=== PATIENT | female | born 1980 | race Caucasian/White ===

== ENCOUNTER 2017-07-12 02:55 | Outpatient (CLI) | payer OTHER ==
[~2017-07-12] VITALS: Ht 162.6 cm; Wt 66.4 kg
[2017-07-12] MEDS ORDERED: RANI150T5 PO (03:37)
[2017-07-12] MEDS ORDERED: BEN50 PO (03:40)
[2017-07-12 03:44] VITALS: Ht 162.6 cm; Wt 66.4 kg
[2017-07-12 03:45] VITALS: BP 109/66; PULSE 99; RESP 19
--- NOTE | 2017-07-12 04:29 | RADRPT ---
PROCEDURE: US OB biophysical profile. CLINICAL INDICATION: decreased movements TECHNIQUE: Multiple sonographic images of the pelvis were obtained. The images were reviewed on a PACS workstation. COMPARISON: No pertinent prior examinations were submitted for comparison. FINDINGS: There is a single viable intrauterine gestation. Cardiac activity is present with 146 beats per min [place]. There is a vertex presentation. The placenta is anterior. There is a normal amount of amniotic fluid with an CALE = 14.6 cm. Biophysical profile: movement 2/2 tone 2/2. breathing 2/2 CALE 2/2 Total 06/25 IMPRESSION: Normal biophysical profile. RPTAT: HIKT . .Dioni Matthews MD, Date Time Electronically viewed and signed by .Dioni Matthews MD, on 07/12/2017 04:28 .T/
--- NOTE | 2017-07-12 05:06 | PN ---
Triage Information Date/Time July 12, 2017. Reason for visit: DFM Weeks of Gestation 35w 6d /Para 1/0 Diabetes: none Hypertention: none Additional information No leaking or bleeding or UC's. PMHx: Has had itching and was in the office 07/10 and bile acids were drawn and are pending. PSHx: none. NKDA. Objective Vital Signs Date Time Temp Pulse Resp B/P Pulse Ox O2 Delivery O2 Flow Rate FiO2 07/12/17 03:45 98.1 99 19 109/66 Room Air Heart Rate: 130's Heart Rate Comments with accels to160 bpm. No decels. Contractions: None Exam Deferred. Results/Medications Imaging Results BPP 06/25. CALE 14.6 cm. VTX. Disposition: Discharge Assessment/Plan A: IUP at 35w 6d. Decreased movement. P: After p.o. hydration the pt was feeling the baby moving again and was ready for d/c. kick counts reviewed. MARQUITA CHANCE MD Jul 12, 2017 05:06
--- NOTE | 2017-07-12 05:09 | TRIAGE ---
OB Triage Datetime Report Generated by CPN: 07/12/2017 05:09 Datetime: 07/12/2017 04:39 Labor Evaluation Frequency: Irregular Monitor Mode: External Quality: Mild Resting Tone [place]: Relaxed Heart Rate FHR Baseline Rate: 135 Monitor Mode: External US Variability: Moderate 6-25 bpm Accelerations: 15X15 Decelerations: None Category: Category I Datetime: 07/12/2017 04:38 Pain Assessment Pain Scale: 0 Pain Presence: None/Denies Pain Type: N/A Datetime: 07/12/2017 04:00 Labor Evaluation Frequency: x3 Monitor Mode: External Duration (sec)2399: 60-90 Quality: Mild Pattern: Normal: <= 5 Contractions in 10 Minutes Resting Tone [place]: Relaxed Heart Rate FHR Baseline Rate: 135 Monitor Mode: External US Variability: Moderate 6-25 bpm Accelerations: 15X15 Decelerations: None Category: Category I Datetime: 07/12/2017 03:51 Pain Assessment Pain Scale: 0 Pain Presence: None/Denies Pain Type: N/A Datetime: 07/12/2017 03:43 Vaginal Exam Membrane Status: Intact Datetime: 07/12/2017 03:15 Time of Arrival: 07/12/2017 02:47 EGA: 35.6 Arrived By: Wheelchair Arrived From: Home Chief Complaint: DFM- last felt the baby move at midnight. Movement: Decreased Contractions: Denies/Absent Rupture of Membranes: Denies Vaginal Bleeding: None Vaginal Discharge: Denies Recent Sexual Intercouse: Denies Abdominal Trauma: Not Applicable Patient Complaints: Other Time Provider Notified: 07/12/2017 04:03 Provider Notified: Dr. Frank Initial Plan: CEFM Datetime: 07/12/2017 03:06 Stage of : OB Triage Assessment Type: Triage Maternal Assessment Level of Consciousness: Fully Conscious DTR's/Clonus: DTRs 2+; No Clonus Headache: Denies Blurred Vision: No Respiratory Effort: Unlabored; Regular Rhythm; Equal Expansion Breath Sounds, Left: Clear and Equal Breath Sounds, Right: Clear and Equal Nausea/Vomiting: Denies RUQ Epigastric Pain: Denies Lower Extremities Edema: None Degree: None Upper Extremities Edema: None Degree: None Facial Edema: None Temperature Route: Oral Fall Risk Assessment History of Falling: (0) No Secondary Diagnosis: (0) No Ambulatory Aid: (0) Bedrest/Nurse Assist IV Therapy: (0) No Gait: (0) Normal/Bedrest/Immobile Mental Status: (0) Oriented to Own Ability Fall Score: 0 Fall Risk Score Definition: No Risk: No action required Pain Assessment Pain Scale: 0 Pain Presence: None/Denies Pain Type: N/A Datetime: 07/12/2017 03:02 Monitor Mode: Palpation (Annotations: Applied) Resting Tone [place]: Relaxed Monitor Mode: External US (Annotations: Applied)
== END 2017-07-12 05:05 | disposition home or self-care (01) ==
LOC: L-D 02:55 → OBT 02:55
PROVIDERS: ATTEND Obstetrics & Gynecology
DX: O36.8130 Decreased fetal movements, third trimester, not applicable or unspecified (principal); Z3A.35 35 weeks gestation of pregnancy
CPT/HCPCS: 76818; Z7500; G0463

== ENCOUNTER 2017-07-13 11:29 | Outpatient (CLI) | payer OTHER ==
[~2017-07-13] VITALS: Ht 157.5 cm; Wt 65.7 kg
[~2017-07-13 11:29] MED LIST: BEN50 PO; RANI150T5 PO
[2017-07-13 12:03] VITALS: Ht 157.5 cm; Wt 65.7 kg
[2017-07-13 12:04] VITALS: BP 109/69; PULSE 100; RESP 20
--- NOTE | 2017-07-13 13:47 | RADRPT ---
PROCEDURE: Biophysical profile CLINICAL INDICATION: distress. TECHNIQUE: Color and john-scale ultrasound images of an intrauterine gestation were obtained. COMPARISON: July 12, 2017 FINDINGS: A single live intrauterine gestation is identified in cephalic position with an estimated hear t rate of 141 beats per minute. The placenta is located anteriorly and is a grade II. The cervix i s obscured by head shadows. No evidence of abruption identified. CALE is 12.7 cm. movement 2/2. tone 2/2. breathing movement 2/2. Qualitative AFV 2/2 Total biophysical profile 06/25 IMPRESSION: 06/25 biophysical profile. RPTAT: AA .Skyler Vyas MD, Date Time Electronically viewed and signed by .Skyler Vyas MD, MD on 07/13/2017 13:46 .P/
--- NOTE | 2017-07-13 15:25 | PN ---
Triage Information Date/Time Reason for visit: Weeks of Gestation 36 weeks of gestation presents with decreased movement /Para 1 para 0 Diabetes: none Objective Vital Signs Date Time Temp Pulse Resp B/P Pulse Ox O2 Delivery O2 Flow Rate FiO2 07/13/17 12:04 98.5 100 20 109/69 Room Air Heart Rate: 140's Heart Rate Comments Category 1 heart rate tracing; reactive Contractions: None Results/Medications Imaging Results PROCEDURE: Biophysical profile CLINICAL INDICATION: distress. TECHNIQUE: Color and ojhn-scale ultrasound images of an intrauterine gestation were obtained. COMPARISON: July 12, 2017 FINDINGS: A single live intrauterine gestation is identified in cephalic position with an estimated heart rate of 141 beats per minute. The placenta is located anteriorly and is a grade II. The cervix is obscured by head shadows. No evidence of abruption identified. CALE is 12.7 cm. movement 2/2. tone 2/2. breathing movement 2/2. Qualitative AFV 2/2 Total biophysical profile 06/25 IMPRESSION: 06/25 biophysical profile. RPTAT: AA .Skyler Vyas MD, Date Time Electronically viewed and signed by .Skyler Vyas MD, MD on 07/13/2017 13:46 .P/ CC: PILAR BROWN MD Disposition: Discharge Assessment/Plan Patient reports positive movement She was counseled regarding kick counts She was instructed to follow-up with her own [facility] in 2-3 days AGUILA TIWARI MD Jul 13, 2017 15:25
--- NOTE | 2017-07-13 15:32 | TRIAGE ---
OB Triage Datetime Report Generated by CPN: 07/13/2017 15:31 Datetime: 07/13/2017 14:53 Stage of : OB Triage FHR Baseline Changes: No Baseline Change Datetime: 07/13/2017 14:46 Stage of : OB Triage Labor Evaluation Frequency: OCCATIONAL Monitor Mode: External Quality: Mild Pattern: Normal: <= 5 Contractions in 10 Minutes Resting Tone [place]: Relaxed Heart Rate FHR Baseline Rate: 130 Monitor Mode: External US FHR Baseline Changes: No Baseline Change Variability: Moderate 6-25 bpm Accelerations: 15X15 Decelerations: None Category: Category I Pain Assessment Pain Scale: 0 Pain Presence: None/Denies Pain Goal: 3 Datetime: 07/13/2017 14:35 Stage of : OB Triage Datetime: 07/13/2017 13:56 Stage of : OB Triage Datetime: 07/13/2017 13:45 Stage of : OB Triage Labor Evaluation Frequency: 4 IN AN HOUR. Monitor Mode: External Duration (sec)2399: 40-70 Quality: Mild Pattern: Normal: <= 5 Contractions in 10 Minutes Resting Tone [place]: Relaxed Heart Rate FHR Baseline Rate: 130 Monitor Mode: External US FHR Baseline Changes: No Baseline Change Variability: Moderate 6-25 bpm Accelerations: 15X15 Decelerations: None Category: Category I Pain Assessment Pain Scale: 0 Pain Presence: None/Denies Pain Goal: 3 Datetime: 07/13/2017 13:11 Stage of : OB Triage Datetime: 07/13/2017 12:50 Stage of : OB Triage Datetime: 07/13/2017 12:46 Stage of : OB Triage Datetime: 07/13/2017 12:45 Stage of : OB Triage Labor Evaluation Frequency: 3 IN AN HOUR Monitor Mode: External Duration (sec)2399: 60-110 Quality: Mild Pattern: Normal: <= 5 Contractions in 10 Minutes Resting Tone [place]: Relaxed Heart Rate FHR Baseline Rate: 140 Monitor Mode: External US FHR Baseline Changes: No Baseline Change Variability: Moderate 6-25 bpm Accelerations: 15X15 Decelerations: None Category: Category I Pain Assessment Pain Scale: 0 Pain Presence: None/Denies Pain Goal: 3 Datetime: 07/13/2017 12:05 Stage of : OB Triage Datetime: 07/13/2017 11:58 Assessment Type: Triage Maternal Assessment Level of Consciousness: Fully Conscious DTR's/Clonus: DTRs 2+; No Clonus Headache: Denies Blurred Vision: No Respiratory Effort: Unlabored; Regular Rhythm; Equal Expansion Breath Sounds, Left: Clear and Equal Breath Sounds, Right: Clear and Equal Nausea/Vomiting: Denies RUQ Epigastric Pain: Denies Lower Extremities Edema: None Degree: None Upper Extremities Edema: None Degree: None Facial Edema: None Fall Risk Assessment History of Falling: (0) No Secondary Diagnosis: (0) No Ambulatory Aid: (0) Bedrest/Nurse Assist IV Therapy: (0) No Gait: (0) Normal/Bedrest/Immobile Mental Status: (0) Oriented to Own Ability Fall Score: 0 Fall Risk Score Definition: No Risk: No action required Datetime: 07/13/2017 11:44 Stage of : OB Triage Datetime: 07/13/2017 11:35 Time of Arrival: 07/13/2017 11:20 EGA: 36.0 Arrived By: Wheelchair Arrived From: Home Chief Complaint: PT IN TO FOLLOW UP WITH DECREASE MOVEMENT ON 07/12 17 Movement: Present Contractions: Denies/Absent Rupture of Membranes: Denies Vaginal Bleeding: None Vaginal Discharge: Denies Recent Sexual Intercouse: Denies Abdominal Trauma: Not Applicable Patient Complaints: None Time Provider Notified: 07/13/2017 12:50 Provider Notified: Initial Plan: NST Datetime: 07/12/2017 03:15 EGA: 35.6 Datetime: 07/12/2017 03:06 Fall Score: 0 Fall Risk Score Definition: No Risk: No action required
== END 2017-07-13 15:20 | disposition home or self-care (01) ==
LOC: OBT 11:29 → L-D 11:29 → OBG 11:29 → OBT 15:20
PROVIDERS: ATTEND Obstetrics & Gynecology
DX: O36.8130 Decreased fetal movements, third trimester, not applicable or unspecified (principal); Z3A.36 36 weeks gestation of pregnancy
CPT/HCPCS: 76818; G0463

== ENCOUNTER 2017-07-16 10:10 | Outpatient (CLI) | payer OTHER ==
[~2017-07-16] VITALS: Ht 157.5 cm; Wt 65.9 kg
[2017-07-16 10:25] VITALS: Ht 157.5 cm; Wt 65.9 kg
[2017-07-16] MEDS ORDERED: PRENAT PO (10:25)
[2017-07-16] MEDS ORDERED: URSO300C3 PO (10:25)
[2017-07-16 10:26] VITALS: BP 119/67; PULSE 97; RESP 18
--- NOTE | 2017-07-16 11:40 | RADRPT ---
PROCEDURE: US OB biophysical profile. CLINICAL INDICATION: decreased movements, abdominal pain TECHNIQUE: Multiple sonographic images of the pelvis were obtained. The images were reviewed on a PACS workstation. COMPARISON: 07/13/2017 FINDINGS: There is a single viable intrauterine gestation. Cardiac activity is present with 161 beats per min [place]. There is a vertex presentation. The placenta is anterior. There is no evidence of placental abruption. There is a normal amount of amniotic fluid with an CALE = 13.9 cm. Biophysical profile: movement 2/2 tone 2/2. breathing 2/2 CALE 2/2 Total 06/25 RPTAT: AA . IMPRESSION: Normal biophysical profile. . .Dean Mancia MD, MD Date Time Electronically viewed and signed by .Dean Mancia MD, MD on 07/16/2017 11:40 .S/
--- NOTE | 2017-07-16 11:57 | TRIAGE ---
OB Triage Datetime Report Generated by CPN: 07/16/2017 11:56 Datetime: 07/16/2017 11:05 Stage of : OB Triage Maternal Assessment Level of Consciousness: Fully Conscious Labor Evaluation Frequency: 4-8 Monitor Mode: External Duration (sec)2399: 60-90 Quality: Mild Resting Tone [place]: Relaxed Heart Rate FHR Baseline Rate: 135 Monitor Mode: External US Variability: Moderate 6-25 bpm Accelerations: 15X15 Decelerations: None Category: Category I Pain Assessment Pain Scale: 0 Pain Goal: 3 Vaginal Exam Membrane Status: Intact Vaginal Bleeding: None Datetime: 07/16/2017 10:22 Assessment Type: Triage Maternal Assessment Level of Consciousness: Fully Conscious DTR's/Clonus: DTRs 2+; No Clonus Headache: Denies Blurred Vision: No Respiratory Effort: Unlabored; Regular Rhythm; Equal Expansion Breath Sounds, Left: Clear and Equal Breath Sounds, Right: Clear and Equal Nausea/Vomiting: Denies RUQ Epigastric Pain: Denies Lower Extremities Edema: None Degree: None Upper Extremities Edema: None Degree: None Facial Edema: None Fall Risk Assessment History of Falling: (0) No Secondary Diagnosis: (0) No Ambulatory Aid: (0) Bedrest/Nurse Assist IV Therapy: (0) No Gait: (0) Normal/Bedrest/Immobile Mental Status: (0) Oriented to Own Ability Fall Score: 0 Fall Risk Score Definition: No Risk: No action required Datetime: 07/16/2017 10:21 Time of Arrival: 07/16/2017 10:06 EGA: 36.3 Arrived By: Ambulatory Arrived From: Office Chief Complaint: pt sent in for NST/BPP FOR CHOLESTASIS Movement: Present Contractions: Denies/Absent Rupture of Membranes: Denies Vaginal Bleeding: None Vaginal Discharge: Denies Recent Sexual Intercouse: Denies Abdominal Trauma: Not Applicable Patient Complaints: None Time Provider Notified: 07/16/2017 11:00 Provider Notified: DELSHAD Initial Plan: NST/EFM Datetime: 07/16/2017 10:20 Monitor Mode: External Monitor Mode: External US Datetime: 07/13/2017 11:58 Fall Score: 0 Fall Risk Score Definition: No Risk: No action required Datetime: 07/13/2017 11:35 EGA: 36.0 Datetime: 07/12/2017 03:15 EGA: 35.6 Datetime: 07/12/2017 03:06 Fall Score: 0 Fall Risk Score Definition: No Risk: No action required
--- NOTE | 2017-07-16 12:06 | PN ---
Triage Information Date/Time Reason for visit: Cholestasis of Weeks of Gestation 36 weeks /Para Diabetes: none Hypertention: none Objective Vital Signs Date Time Temp Pulse Resp B/P Pulse Ox O2 Delivery O2 Flow Rate FiO2 07/16/17 10:26 98.4 97 18 119/67 Heart Rate: 140's Heart Rate Comments Category I Contractions: 6-10 Minutes Apart Results/Medications Imaging Results BPP 06/25 Disposition: Discharge Assessment/Plan Antepartum Testing Reassuring D/C home PILAR BROWN MD Jul 16, 2017 12:06
== END 2017-07-16 12:04 | disposition home or self-care (01) ==
LOC: OBT 10:10 → L-D 10:10 → OBT 12:04
PROVIDERS: ATTEND Obstetrics & Gynecology
DX: O26.613 Liver and biliary tract disorders in pregnancy, third trimester (principal); Z3A.36 36 weeks gestation of pregnancy
CPT/HCPCS: 76818; Z7500; G0463

== ENCOUNTER 2017-07-19 10:59 | Outpatient (CLI) | payer OTHER ==
[~2017-07-19] VITALS: Ht 157.5 cm; Wt 66.0 kg
[~2017-07-19 10:59] MED LIST changes: -BEN50 PO; +PRENAT PO; -RANI150T5 PO; +URSO300C3 PO
[2017-07-19 11:26] VITALS: Ht 157.5 cm; Wt 66.0 kg
[2017-07-19 11:27] VITALS: BP 118/62; PULSE 96
--- NOTE | 2017-07-19 11:50 | RADRPT ---
PROCEDURE: US OB biophysical profile. CLINICAL INDICATION: decreased movements TECHNIQUE: Multiple sonographic images of the pelvis were obtained. The images were reviewed on a PACS workstation. COMPARISON: US PELVIS 07/16/2017 FINDINGS: There is a single viable intrauterine gestation. Cardiac activity is present with 156 beats per min [place]. There is a vertex presentation. The placenta is anterior. There is no evidence of placental abruption. There is a normal amount of amniotic fluid with an CALE = 10.6 cm. Biophysical profile: movement 2/2 tone 2/2. breathing 2/2 CALE 2/2 Total 06/25 RPTAT: AA . IMPRESSION: Normal biophysical profile. . .Dean Mancia MD, MD Date Time Electronically viewed and signed by .Dean Mancia MD, MD on 07/19/2017 11:50 .S/
--- NOTE | 2017-07-19 11:51 | RADRPT ---
PROCEDURE: US OB. CLINICAL INDICATION: Size and dates TECHNIQUE: Multiple sonographic images of the pelvis and gravid uterus were obtained. The images were reviewed on a PACS workstation. COMPARISON: US PELVIS 07/19/2017 FINDINGS: There is a single viable intrauterine gestation. Cardiac activity is present with 148 beats per min [place]. There is a vertex presentation. The placenta is anterior. There is no evidence of placental abruption. There is a normal amount of amniotic fluid with an CALE = 10.6 cm. Measurements were made in order to determine age. The results are as follows: BPD =8.7 cm HC =31.1 cm AC =31.7 cm FL =6.9 cm Estimated gestational age of approximately 35 weeks and 2 days based on ultrasound measurements. Clinical age: 37 weeks and 0 days. The estimated date of delivery is 08/21/17, based on ultrasound measurements. The EFW = 2680 g, 18.3%, based on LMP age. RPTAT: AA IMPRESSION: Single viable intrauterine gestation of approximately 35 weeks and 2 days based on ultrasound measu rements. .Dean Mancia MD, MD Date Time Electronically viewed and signed by .Dean Mancia MD, MD on 07/19/2017 11:51 .S/
--- NOTE | 2017-07-19 13:35 | CONS ---
Date/Time of Note Date/Time of Note DATE: 07/19/17 TIME: 13:29 Consultation Date/Type/Reason Admit Date/Time July 19, 2017 OB triage consult This patient is 36 years old 1 para 0 with estimated date of confinement of August 09, 2017 which makes her 36 weeks and 6 days today. She was referred to OB triage for monitoring and evaluation of her condition of cholestasis of . On general examination her vital signs appear to be normal with blood pressure 118/62 pulse rate 96 respiration 18,, and temperature 98.5,. Constitutional: No chills, No diaphoresis, No disoriented, No febrile, No improved, No no complaints, No other, No poor po, No requiring IVF, No requiring O2 Eyes: No discharge, No no complaints, No other, No pain, No redness, No visual change ENT: No bleeding, No congestion, No discharge, No dysphagia, No no complaints, No other, No pain, No sore throat Respiratory: No cough, No no complaints, No other, No pain, No pleuritic pain, No shortness of breath, No sputum, No wheezing Cardiovascular: No chest pain, No edema, No lightheadedness, No no complaints, No orthopenea, No other, No palpitations, No paroxysmal nocturnal dyspnea Gastrointestinal: No blood, No constipation, No decreased appetite, No diarrhea , No flatus, No nausea, No no complaints, No other, No pain, No passing stool, No vomiting Genitourinary: other (Pelvic examination was not performed due to the fact that she did not have any contractions at this time), No bleeding, No discharge, No dysuria, No flank pain, No hematuria, No no complaints Musculoskeletal: No back pain, No bone/joint pain, No neck pain, No no complaints, No other, No restricted range of motion, No swelling Skin: other (No erythema of the palms of the hand.), No bruising, No erythema, No laceration, No no complaints, No pruritis, No rash, No skin lesions Neurologic: other (Knee-jerk reflexes normal), No confusion, No dizziness, No focal-weakness, No headache, No no complaints , No seizure, No syncope Endocrine: No dry skin, No no complaints, No other, No polydypsia, No polyuria , No temp intolerance Additional Comments . Social History Smoking Status: Never smoker Exam/Review of Systems Vital Signs Vitals Vital Signs Date Time Temp Pulse Resp B/P Pulse Ox O2 Delivery O2 Flow Rate FiO2 07/19/17 11:27 98.5 96 118/62 JUAN LUIS OLSEN MD Jul 19, 2017 13:35
== END 2017-07-19 13:15 | disposition home or self-care (01) ==
LOC: L-D 10:59 → OBT 10:59
PROVIDERS: ATTEND Obstetrics & Gynecology
DX: O26.613 Liver and biliary tract disorders in pregnancy, third trimester (principal); K83.1 Obstruction of bile duct; Z3A.36 36 weeks gestation of pregnancy
CPT/HCPCS: 76815; 76818; Z7500; G0463

== ENCOUNTER 2017-07-20 09:49 | Inpatient (IN) | payer OTHER ==
[~2017-07-20] VITALS: Ht 167.6 cm; Wt 65.6 kg
[2017-07-20] MEDS: SENNA/DOCUSATE NA (8.6MG/50MG) TAB PO SCH (00:47)
[2017-07-20 10:19] VITALS: BP 111/73; PULSE 115; RESP 18; Ht 167.6 cm; Wt 65.6 kg
[2017-07-20] MEDS ORDERED: CEFAZOLIN 2 GM/50 ML (PMX) 50 ML IV SCH (10:30)
[2017-07-20] MEDS ORDERED: CARBOPROST 250 MCG INJ IM PRN ×2 (10:30→18:30)
[2017-07-20] MEDS ORDERED: MISOPROSTOL 200 MCG TAB PR PRN ×2 (10:30→18:30)
[2017-07-20] MEDS ORDERED: OXYTOCIN 30 UNITS/LR 500 ML IV PRN ×2 (10:30→18:30)
[2017-07-20] MEDS ORDERED: METHYLERGONOVINE 0.2 MG INJ IM PRN ×2 (10:30→18:30)
[2017-07-20 10:32] LABS: ABNORMAL IP MESSAGE 1; BASOPHIL # 0.1 10^3/ul (0.0-0.1); BASOPHILS % 0.5 % (0.0-2.0); EOSINOPHILS # 0.1 10^3/ul (0.0-0.5); EOSINOPHILS % 0.9 % (0.0-7.0); HEMATOCRIT 35.2 % (37.0-47.0); HEMOGLOBIN 11.9 g/dl (12.0-16.0); LYMPHOCYTES # 1.5 10^3/ul (0.8-2.9); LYMPHOCYTES % 16.6 % (15.0-51.0); MEAN CORPUSCULAR HEMOGLOBIN 30.1 pg (29.0-33.0); MEAN CORPUSCULAR HGB CONC 33.8 g/dl (32.0-37.0); MEAN CORPUSCULAR VOLUME 89.1 fl (82.0-101.0); MEAN PLATELET VOLUME 13.2 fl (7.4-10.4); MONOCYTE # 0.7 10^3/ul (0.3-0.9); MONOCYTES % 7.3 % (0.0-11.0); NEUTROPHILS % 74.1 % (39.0-77.0); PLATELET COUNT 185 10^3/UL (140-415); RED BLOOD COUNT 3.95 10^6/ul (4.20-5.40); RED CELL DISTRIBUTION WIDTH 13.5 % (11.5-14.5); WHITE BLOOD COUNT 9.3 10^3/ul (4.8-10.8)
[2017-07-20] MEDS: LACTATED RINGER'S 1,000 ML IV SCH ×4 (10:41→23:52)
[2017-07-20 10:58] LABS: POSITIVE DIFF @See below
[2017-07-20 11:01] LABS: INR 0.81; PROTIME 11.2 Sec (12.2-14.2); PT RATIO 0.9
[2017-07-20 11:02] LABS: PARTIAL THROMBOPLASTIN TIME 27.5 Sec (25.0-35.0)
--- NOTE | 2017-07-20 14:38 | HP ---
Date/Time of Note Date/Time of Note DATE: 07/20/17 TIME: 14:36 OB - History Hx of Present Chief Complaint: scheduled Estimated Due Date: Aug 09, 2017 : 1 Para: 0 Spontaneous : 0 Therapeutic : 0 Care: Good Care Ultrasounds: Normal mid trimester US Obstetrical Complications: Other (intrahepatic cholestasis of ) Medical Complications: None Past Family/Social History * Past Medical, Surgical, Family and Obstetric Histories reviewed from chart. GBS Status: Negative OB Admission Exam Vital Signs Vital Signs Vital Signs Date Time Temp Pulse Resp B/P Pulse Ox O2 Delivery O2 Flow Rate FiO2 07/20/17 10:19 97.8 115 18 111/73 98 Physical Exam HEENT: WNL Heart: Rhythm Normal Lungs: Clear, Equal Abdomen: WNL Extremities: Normal Reflexes: Normal Heart Rate: 130's Accelerations: Accelerations Present Decelerations: No Decelerations Varibility: Moderate Last 72 hours Lab Results CBC & BMP 07/20/17 10:00 OB Assessment/Plan Other Assessment: Patient declines trial of labor Plan: Section PILAR BROWN MD Jul 20, 2017 14:38
[2017-07-20] MEDS ORDERED: ONDANSETRON 4 MG INJ ONE (14:54)
[2017-07-20] MEDS ORDERED: PHENYLephrine (100 MCG/ML) 5ML SYG ONE ×2 (14:54→15:32)
[2017-07-20] MEDS ORDERED: OXYTOCIN 10 UNIT INJ ONE (14:54)
[2017-07-20] MEDS ORDERED: morphine SULFATE/PF (10 MG/10 ML) INJ ONE (14:54)
[2017-07-20] MEDS ORDERED: MIDAZOLAM 1 MG/ML 2 ML INJ ONE (15:36)
[2017-07-20] MEDS ORDERED: morphine 2 MG INJ IV PRN (16:00)
[2017-07-20] MEDS ORDERED: NALOXONE (0.4 MG/ML) INJ IV PRN (16:00)
[2017-07-20] MEDS ORDERED: DIPHENHYDRAMINE 50 MG INJ IV PRN ×3 (16:00→18:30)
[2017-07-20] MEDS ORDERED: ONDANSETRON 4 MG INJ IV PRN (16:00)
--- NOTE | 2017-07-20 16:08 | SIPON ---
Date/Time of Note Date/Time of Note DATE: 07/20/17 TIME: 16:05 Operative Report Preoperative Diagnosis 37 weeks and 1 day with intrahepatic cholestasis of , elective primary . Postoperative Diagnosis Same Operation/Procedure Performed Primary Low Transverse Surgeon: PILAR BROWN MD executive assistant to general counsel: JUAN LUIS OLSEN MD Anesthesia Type: spinal Estimated Blood Loss: other (500 ml.) Transfusion Required: no Specimens placenta Grafts/Implants: none Complications: no PILAR BROWN MD Jul 20, 2017 16:08
[2017-07-20] MEDS ORDERED: DIPHENHYDRAMINE 25 MG CAP ONE (17:22)
[2017-07-20] MEDS: KETOROLAC 30 MG INJ IV PRN (17:36)
[2017-07-20] MEDS ORDERED: LANOLIN 7 GM TUBE TOP PRN (18:30)
--- NOTE | 2017-07-20 18:34 | OPR ---
DATE OF OPERATION: 07/20/2017 PREOPERATIVE DIAGNOSIS: at 37 weeks and 1 day with intrahepatic cholestasis of . The patient requests elective primary section. POSTOPERATIVE DIAGNOSIS: at 37 weeks and 1 day with intrahepatic cholestasis of . The patient requests elective primary section. OPERATION PERFORMED: Primary low transverse section. SURGEON: Aakash Frank MD. FOUNDER & CEO: Soumya Jurado MD. ANESTHESIA: Spinal. ANESTHESIOLOGIST: Garret Chaudhry MD. OPERATIVE PROCEDURE: The patient was taken to the operating room and placed on the operating table. After successful spinal anesthesia was given, the patient was placed in the supine position. The area was prepared and draped in the usual sterile fashion. Spinal anesthesia was tested and was satisfactory. Using a scalpel, Pfannenstiel incision was made about 2 fingerbreadths above the symphysis pubis. The incision was carried to the fascia. The fascia was incised and extended bilaterally with [place] scissors. Two Shefali's were used to separate the fascia from the muscle. The muscle was dissected down to peritoneum. The peritoneum was bluntly entered. Using a scalpel, a small transverse incision was made in the lower segment and upper uterus. Upon entering the uterine cavity, attention was directed to extend the incision bilaterally. The baby was delivered from cephalic presentation. After suctioned clear of amniotic fluid, the was handed off to the team in attendance. Apgars were 9 and 9. The placenta was delivered without difficulty. The uterus was closed with number 1 Monocryl continuous locked after adequate hemostasis. Both ovaries and tubes were inspected. All looked normal. The peritoneum was closed with 0 chromic continuous. The fascia was closed with number 1 Vicryl continuous in 2 segments. Subcutaneous tissue was reapproximated with 0 chromic. The skin was closed with mason. ESTIMATED BLOOD LOSS: Five hundred mL. COMPLICATIONS: None. COUNTS: All counts were correct. Dictated By: Aakash Frank MD /lesli/pk /Document#: [id number]
[2017-07-20 18:40] VITALS: BP 124/64; PULSE 78; RESP 18
[2017-07-20 20:00] VITALS: BP 121/65; PULSE 76; RESP 18
[2017-07-20] MEDS: OXYTOCIN 30 UNITS/LR 500 ML IV SCH ×2 (20:08→22:13)
[2017-07-20] MEDS: IBUPROFEN 800 MG TAB PO SCH (22:00)
[2017-07-20 23:52] VITALS: BP 128/83; PULSE 72; RESP 18
[2017-07-21 04:00] VITALS: BP 105/61; PULSE 78; RESP 18
[2017-07-21] MEDS: IBUPROFEN 800 MG TAB PO SCH ×3 (06:00→17:16)
[2017-07-21 07:30] VITALS: BP 118/73; PULSE 63; RESP 18
[2017-07-21 08:15] LABS: ABNORMAL IP MESSAGE 1; BASOPHILS % 0.4 % (0.0-2.0); EOSINOPHILS % 0.4 % (0.0-7.0); HEMATOCRIT 29.7 % (37.0-47.0); HEMOGLOBIN 9.9 g/dl (12.0-16.0); LYMPHOCYTES # 1.3 10^3/ul (0.8-2.9); LYMPHOCYTES % 13.4 % (15.0-51.0); MEAN CORPUSCULAR HEMOGLOBIN 30.3 pg (29.0-33.0); MEAN CORPUSCULAR HGB CONC 33.3 g/dl (32.0-37.0); MEAN CORPUSCULAR VOLUME 90.8 fl (82.0-101.0); MEAN PLATELET VOLUME 13.1 fl (7.4-10.4); MONOCYTE # 0.7 10^3/ul (0.3-0.9); NEUTROPHILS % 78.3 % (39.0-77.0); PLATELET COUNT 149 10^3/UL (140-415); RED BLOOD COUNT 3.27 10^6/ul (4.20-5.40); RED CELL DISTRIBUTION WIDTH 13.6 % (11.5-14.5); WHITE BLOOD COUNT 9.5 10^3/ul (4.8-10.8)
[2017-07-21 08:28] LABS: POSITIVE DIFF @See below
[2017-07-21] MEDS: SENNA/DOCUSATE NA (8.6MG/50MG) TAB PO SCH ×2 (09:10→20:14)
[2017-07-21] MEDS: LACTATED RINGER'S 1,000 ML IV SCH ×2 (09:11→18:13)
[2017-07-21] MEDS: KETOROLAC 30 MG INJ IV PRN (09:11)
--- NOTE | 2017-07-21 15:14 | QN ---
Documentation Comment Post day 1 Afebrile Vital signs are stable Abdomen soft Bowel sounds present Lochia moderate Incision dry Extremities normal Ambulation encouraged Laboratory Tests Test 07/21/17 07:30 White Blood Count 9.510^3/ul Red Blood Count 3.2710^6/ul Hemoglobin 9.9g/dl Hematocrit 29.7% Mean Corpuscular Volume 90.8fl Mean Corpuscular Hemoglobin 30.3pg Mean Corpuscular Hemoglobin Concent 33.3g/dl Red Cell Distribution Width 13.6% Platelet Count 59321^3/UL Mean Platelet Volume 13.1fl Neutrophils % 78.3% Lymphocytes % 13.4% Monocytes % 7.0% Eosinophils % 0.4% Basophils % 0.4% Nucleated Red Blood Cells % 0.0/100WBC Neutrophils # (Manual) 7.410^3/ul Lymphocytes # 1.310^3/ul Monocytes # 0.710^3/ul Eosinophils # 0.010^3/ul Basophils # 0.010^3/ul Nucleated Red Blood Cells # 0.010^3/ul Current Medications Medications (Trade) Dose Ordered Sig/Marylou Route PRN Reason Start Time Stop Time Status Last Admin Dose Admin Cefazolin Sodium/ Dextrose 50 ml @ 100 mls/hr ONCE IV 07/20/17 10:30 07/20/17 18:15 DC Oxytocin/Lactated Ringer's 500 ml @ 0 mls/hr ONCE PRN IV For Hemorrhage Management 07/20/17 10:30 07/20/17 18:15 DC 07/20/17 16:00 Methylergonovine Maleate (Methergine) 0.2 mg ONCE PRN IM VAGINAL BLEEDING 07/20/17 10:30 07/20/17 18:15 DC Carboprost Tromethamine (Hemabate) 250 mcg ONCE PRN IM VAGINAL BLEEDING 07/20/17 10:30 07/20/17 18:15 DC Misoprostol 1000 mcg 1,000 mcg ONCE PRN AL VAGINAL BLEEDING 07/20/17 10:30 07/20/17 18:15 DC Lactated Ringer's (Lr) 1,000 ml @ 125 mls/hr Q8H IV 07/20/17 11:00 07/20/17 18:15 DC 07/20/17 12:59 Morphine Sulfate (Duramorph) 10 mg STK-MED ONCE .ROUTE 07/20/17 14:54 07/20/17 14:55 DC Ondansetron HCl (Zofran Inj) 4 mg STK-MED ONCE .ROUTE 07/20/17 14:54 07/20/17 14:55 DC Oxytocin (Oxytocin) 10 units STK-MED ONCE .ROUTE 07/20/17 14:54 07/20/17 14:55 DC Phenylephrine HCl ([place]-Synephrine Inj Syg) 500 mcg STK-MED ONCE .ROUTE 07/20/17 14:54 07/20/17 14:55 DC Phenylephrine HCl ([place]-Synephrine Inj Syg) 500 mcg STK-MED ONCE .ROUTE 07/20/17 15:32 07/20/17 15:33 DC Midazolam HCl (Versed) 2 mg STK-MED ONCE .ROUTE 07/20/17 15:36 07/20/17 15:37 DC Naloxone HCl (Narcan) 0.1 mg Q2M PRN IV FOR RESP RATE 8 OR LESS 07/20/17 16:00 07/21/17 14:50 DC Ketorolac Tromethamine (Toradol) 30 mg Q6H PRN IV PAIN 07/20/17 16:00 07/21/17 14:50 DC 07/21/17 09:11 Morphine Sulfate (morphine) 2 mg Q3H PRN IV PAIN LEVEL 1-5 07/20/17 16:00 07/21/17 14:50 DC Diphenhydramine HCl (Benadryl) 25 mg Q6H PRN IV ITCHING 07/20/17 16:00 07/20/17 17:28 DC Ondansetron HCl (Zofran Inj) 4 mg Q6H PRN IV NAUSEA AND/OR VOMITING 07/20/17 16:00 07/21/17 14:50 DC 07/20/17 17:34 Miscellaneous Information (* Miscellaneous Pharmacy Order) Duramorph: 0.2 mg Spi... GIVEN XX 07/20/17 16:00 07/20/17 18:15 DC Diphenhydramine HCl (Benadryl) 25 mg STK-MED ONCE .ROUTE 07/20/17 17:22 07/20/17 17:23 DC Diphenhydramine HCl 25 mg 25 mg Q6H PRN IV ITCHING 07/20/17 17:25 07/20/17 17:33 Lactated Ringer's 1,000 ml @ 125 mls/hr Q8H IV 07/20/17 18:13 07/21/17 09:11 Oxytocin/Lactated Ringer's 500 ml @ 125 mls/hr Q4H IV 07/20/17 18:13 07/21/17 02:12 DC 07/20/17 20:08 Oxycodone/ Acetaminophen (Percocet (5/ 325)) 1 tab Q4H PRN PO PAIN LEVEL 4-6 07/20/17 18:30 Oxycodone/ Acetaminophen (Percocet (5/ 325)) 2 tab Q4H PRN PO PAIN LEVEL 7-10 07/20/17 18:30 Ibuprofen (Motrin) 800 mg Q8 PO 07/20/17 22:00 Simethicone (Mylicon) 160 mg Q8H PRN PO DISTENSION/GAS/BLOATING 07/20/17 18:30 Senna/Docusate Sodium (Senokot-S) 1 tab BID PO 07/20/17 21:00 07/21/17 09:10 Lanolin (Gam-Z-Jvdpfa) 1 applic BEDSIDE MEDICATION PRN TOP BEDSIDE FOR DEMI TO NIPPLES 07/20/17 18:30 Diphtheria/ Tetanus/Acell Pertussis 0.5 ml 0.5 ml ONCE ONCE IM* 07/23/17 09:00 07/23/17 09:01 Oxytocin/Lactated Ringer's 500 ml @ 0 mls/hr ONCE PRN IV For Hemorrhage Management 07/20/17 18:30 Methylergonovine Maleate (Methergine) 0.2 mg ONCE PRN IM VAGINAL BLEEDING 07/20/17 18:30 Carboprost Tromethamine (Hemabate) 250 mcg ONCE PRN IM VAGINAL BLEEDING 07/20/17 18:30 Misoprostol (Cytotec) 1,000 mcg ONCE PRN AL VAGINAL BLEEDING 07/20/17 18:30 Diphenhydramine HCl (Benadryl) 25 mg Q6H PRN IV ITCHING 07/20/17 18:30 SIGRID MERIDA MD Jul 21, 2017 15:14
[2017-07-21 16:03] VITALS: BP 111/79; PULSE 76; RESP 18
[2017-07-21 20:00] VITALS: BP 107/67; PULSE 92; RESP 18
[2017-07-21] MEDS: OXYCODONE/ACETAMINOPHEN (5/325) TAB PO PRN (20:14)
[2017-07-22] MEDS: OXYCODONE/ACETAMINOPHEN (5/325) TAB PO PRN ×4 (00:59→23:55)
[2017-07-22] MEDS: LACTATED RINGER'S 1,000 ML IV SCH (02:13)
[2017-07-22 04:00] VITALS: BP 114/87; PULSE 76; RESP 18
[2017-07-22] MEDS: IBUPROFEN 800 MG TAB PO SCH ×3 (06:02→22:24)
[2017-07-22 07:40] VITALS: BP 104/59; PULSE 68; RESP 16
[2017-07-22] MEDS: SENNA/DOCUSATE NA (8.6MG/50MG) TAB PO SCH ×2 (08:50→21:00)
[2017-07-22 16:00] VITALS: BP 120/67; PULSE 73; RESP 16
--- NOTE | 2017-07-22 18:45 | QN ---
Documentation Comment No complaint Afebrile VSS Abdomen soft ND POD #2 Stable Continue present care. PILAR BROWN MD Jul 22, 2017 18:45
[2017-07-22] MEDS ORDERED: MAGNESIUM HYDROXIDE 30ML CUP PO ONE (19:00)
[2017-07-22 20:15] VITALS: BP 116/68; PULSE 74; RESP 18
[2017-07-23] VITALS: BP 112/72; PULSE 76; RESP 18
[2017-07-23 04:45] VITALS: BP 116/58; PULSE 116; RESP 18
[2017-07-23] MEDS: IBUPROFEN 800 MG TAB PO SCH (06:00)
[2017-07-23 07:40] VITALS: BP 118/74; PULSE 73; RESP 16
[2017-07-23] MEDS: OXYCODONE/ACETAMINOPHEN (5/325) TAB PO PRN (07:57)
[2017-07-23] MEDS: SENNA/DOCUSATE NA (8.6MG/50MG) TAB PO SCH (08:30)
[2017-07-23] MEDS ORDERED: DIPHTH/TET/ACEL PERTUSS (ADULT) 0.5 ML VIAL IM* ONE (09:00)
--- NOTE | 2017-07-23 12:28 | DS ---
Date/Time of Note Date/Time of Note DATE: 07/23/17 TIME: 12:26 Obstetrical Discharge Record Final Diagnosis Final Diagnosis: Term delivered Section Section: Primary Primary Indication Elective Complications Other (intrahepatic cholestasis of ) Condition on Discharge Physical Assessment Voiding: Yes Bowel Movement: Yes Breast: Soft, non-tender Fundus: Firm Abdomen and Incision: Incision intact Calf Tenderness: No Patient Condition: Stable PILAR BROWN MD Jul 23, 2017 12:28
== END 2017-07-23 16:02 | disposition home or self-care (01) | DRG 765 ==
LOC: L-D 09:49 → PP1 18:33
PROVIDERS: ADMIT Obstetrics & Gynecology; ATTEND Obstetrics & Gynecology
PROC: 10D00Z1 Extraction of Products of Conception, Low, Open Approach (ICD-10-PCS; principal; 2017-07-20 12:30)
DX: O26.62 Liver and biliary tract disorders in childbirth (principal); K83.1 Obstruction of bile duct; Z3A.37 37 weeks gestation of pregnancy; Z37.0 Single live birth
CPT/HCPCS: 85025; 85610; 85730; 86592; 86850; 86900; 86901; 87340; 90715; 99464; J0690; J1200; J1885; J2250; J2274; J2370; J2405; J2590; J7120